=== PATIENT | male | born 1990 | race Caucasian/White ===

== ENCOUNTER 2020-03-18 19:56 | Emergency (ER) | payer OTHER ==
[~2020-03-18] VITALS: Ht 185.4 cm; Wt 86.2 kg
[2020-03-18] MEDS ORDERED: TDAP [DIPH/PERTUSSIS/TET] 0.5 ML VIAL IM ONE ×2 (20:30→20:33)
[2020-03-18] MEDS ORDERED: oxyCODONE/APAP (5/325 MG) 1 UDTAB TABLET PO ONE (20:30)
[2020-03-18] MEDS ORDERED: oxyCODONE/APAP (5/325 MG) 1 UDTAB TABLET ONE (20:33)
--- NOTE | 2020-03-18 20:34 | NUR ---
PT AAOX4. AMBULATORY WITH STEADY GAIT. BIBSELF C/O BLEEDING FROM PENIS S/P FELL 3FT FROM LOADING DOCK TO TRUCK. PT'S PENIS WAS IRRIGATED, NOTED TO HAVE BLEEDING FROM URETHRA. LINE ESTABLISHED RAC 20G, BLOOD WORK COLLECTED, SENT TO LAB.
[2020-03-18 20:44] LABS: BASOPHILS % (AUTO) 0.3 % (0.0-2.0); EOSINOPHILS % (AUTO) 1.1 % (0.0-6.0); HEMATOCRIT 47 % (39-51); HEMOGLOBIN 16.1 g/dL (13.5-17.5); LYMPHOCYTES # (AUTO) 1.1 /CMM (0.8-4.8); LYMPHOCYTES % (AUTO) 11.9 % (20.0-44.0); MEAN CORPUSCULAR HGB CONC 34 g/dl (31.0-36.0); MEAN CORPUSCULAR VOLUME 89 fL (80-96); MONOCYTES # (AUTO) 0.4 /CMM (0.1-1.30); NEUTROPHILS # (AUTO) 7.8 /CMM (1.8-8.9); NEUTROPHILS % (AUTO) 82.7 % (43.0-81.0); PLATELET COUNT (AUTO) 190 /CMM (150-450); RED BLOOD CELL COUNT(AUTO) 5.28 MIL/uL (4.5-6.0); WHITE BLOOD COUNT (AUTO) 9.5 K/uL (4.3-11.0)
[2020-03-18] MEDS ORDERED: LIDOCAINE 2% JEL UROJET 10 ML MM ONE ×3 (20:48→21:32)
[2020-03-18] MEDS ORDERED: IV NS 0.9% 1,000 ML BAG IV ONE (21:00)
[2020-03-18 21:11] LABS: CALCIUM, SERUM 8.8 mg/dL (8.5-10.1); CREATININE 1.1 mg/dL (0.6-1.3); POTASSIUM 3.8 mmol/L (3.5-5.1)
[2020-03-18 21:18] LABS: ALBUMIN 4.2 g/dL (3.4-5.0); BILIRUBIN,DIRECT 0.2 mg/dL (0.0-0.2); BILIRUBIN,TOTAL 0.5 mg/dL (0.2-1.0); TOTAL PROTEIN, SERUM 7.1 g/dL (6.4-8.2)
--- NOTE | 2020-03-18 21:41 | NUR ---
PT WAS ABLE TO URINATE
--- NOTE | 2020-03-18 21:42 | NUR ---
PER MD WAIT FOR LITER OF NS TO FINISH BEFORE DISCHARGE.
--- NOTE | 2020-03-18 22:27 | NUR ---
Darya antunez in ED - 03/18/20 at 2228 by JOSÉ MANUEL Patient discharged to home in stable condition. Written and verbal after care instructions given. Patient verbalizes understanding of instruction and RX. Pt ambulated out of E.D. vss.
[2020-03-18 22:28] VITALS: BP 111/71
== END 2020-03-18 22:40 | disposition home or self-care (01) ==
LOC: ER 19:56
DX: S37.33XA Laceration of urethra, initial encounter (principal); J45.909 Unspecified asthma, uncomplicated; W18.39XA Other fall on same level, initial encounter; Y93.89 Activity, other specified; Y92.89 Other specified places as the place of occurrence of the external cause; Y99.8 Other external cause status
CPT/HCPCS: 80048; 80076; 83690; 85025; 85730; 90471; 90715; 96360; 99283; J3490 ×2; J7030